=== PATIENT | male | born 1950 | race Caucasian/White ===

== ENCOUNTER 2017-11-04 12:53 | Emergency (ER) | payer OTHER ==
--- OUTSIDE RECORDS SUMMARY | 2017-11-04 12:55 | XMS REPORT | Summary of Care ---
:1950 Author Organization [facility] Out[facility] [place] Address [address] [address]- Encounter HQ Encntr_alias(FIN) [id number] Date(s): 03/11/17 - 03/11/17 [facility] Outpatient Imaging [address], [facility] [address] [place] [address]- [phone] Discharge Disposition: Home or Self Care Attending Physician: Jimbo Velasquez MD Vital Signs No data available for this section Problem List No data available for this section Allergies, Adverse Reactions, Alerts No data available for this section Medications No data available for this section Results No data available for this section Immunizations No data available for this section Procedures No data available for this section Social History No data available for this section Assessment and Plan No data available for this section
--- OUTSIDE RECORDS SUMMARY | 2017-11-04 12:55 | XMS REPORT | Continuity of Care Document ---
:1950 Author Organization Interface Problems Problem Status Onset Classification Date Comments Source Date Reported POLYPS OF SINUS Active [address] J32.4 - CHRONIC Active [facility] PANSINUSITIS [address] [place] [address] G50.1 - ATY Back pain Active Problem 10/03/2017 [facility] [place] Chronic Active Problem 10/03/2017 [facility] sinusitis [place],[facility] Medications Medication Details Route Status Patient Ordering Order Source Instructions Provider Date neostigmine
Route: IV, Inactive 04/04[facility] (ANES) Drug form: INJ, 2016 Medical ONCE, Stop date: [place] 04/04/17 13:01:00 LEGAL SPECIALIST glycopyrrolate
Route: IV, Inactive [facility] (ANES) Drug form: INJ, 2016 Medical ONCE, Stop date: [place] 04/04/17 13:01:00 LEGAL SPECIALIST ondansetron
Route: IV, Inactive [address] [place] [address] (ANES) Drug form: INJ, 2016 Medical ONCE, Stop date: [place] 04/04/17 13:01:00 LEGAL SPECIALIST metoprolol (ANES)
Route: IV, Inactive [address] [place] [address] Drug form: INJ, 2016 Medical ONCE, Stop date: [place] 04/04/17 13:01:00 LEGAL SPECIALIST esmolol (ANES)
Route: IV, Inactive [address] [place] [address] Drug form: INJ, 2016 Medical ONCE, Stop date: [place] 04/04/17 12:49:00 LEGAL SPECIALIST ketAMINE (ANES)
Route: IV, Inactive [facility] Drug form: INJ, 2016 Medical ONCE, Stop date: [place] 04/04/17 11:34:00 LEGAL SPECIALIST Ondansetron
4 mg, 2 mL, Inactive [address] [place] [address] Route: IVP, Drug [facility] Medical form: INJ, ONCE, [place] Dosing Weight 90.909, kg, PRN Nausea & Vomiting, Start date: 04/04/17 11:34:00 LEGAL SPECIALIST
Notes: (Same as: Zofran) MEDICATION WASTE Product Size: 4 mg Product Wasted: ___ mg Promethazine
6.25 mg, Inactive 04/04[facility] 0.25 mL, Route: 2016 Medical IVPB, Drug form: Center INJ, ONCE, Dosing Weight 90.909, kg, PRN Nausea & Vomiting, Start date: 04/04/17 11:34:00 LEGAL SPECIALIST
Notes: Do not give IV push. (Same as: Phenergan) Naloxone
0.4 mg, 1 Inactive 04/04[facility] mL, Route: IVP, 2016 Medical Drug form: INJ, Center Q2MIN, Dosing Weight 90.909, kg, PRN Narcotic Reversal, Start date: 04/04/17 11:34:00 LEGAL SPECIALIST, Duration: 8 doses or times, Stop date: 04/05/17 0:00:00 LEGAL SPECIALIST
Notes: Same as Narcan Flumazenil
0.2 mg, 2 Inactive 04/04[facility] mL, Route: IVP, 2016 Medical Drug form: INJ, Center PRN, Dosing Weight 90.909, kg, PRN Benzodiazepine Reversal, Initial dose, Start date: 04/04/17 11:34:00 LEGAL SPECIALIST, Duration: 30 day, Stop date: 05/04/17 11:33:00 LEGAL SPECIALIST
Notes: (Same as: Romazicon) Hydromorphone
0.5 mg, Inactive 04/04[facility] 0.25 mL, Route: 2016 Medical IVP, Drug form: Center INJ, Q5Min, Dosing Weight 90.909, kg, PRN Pain Score 7-10, Start date: 04/04/17 11:34:00 LEGAL SPECIALIST, Duration: 4 doses or times, Stop date: 04/05/17 0:00:00 LEGAL SPECIALIST
Notes: Same as: Dilaudid Oxycodone
5 mg, 1 Inactive 04/04[facility] tab, Route: PO, 2016 Medical Drug form: TAB, Center Q4H, Dosing Weight 90.909, kg, PRN Pain Score 4-6, Start date: 04/04/17 11:34:00 LEGAL SPECIALIST, Duration: 30 day, Stop date: 05/04/17 11:33:00 LEGAL SPECIALIST
Notes: (Same as: Roxicodone) Labetalol
10 mg, 2 Inactive [facility] mL, Route: IVP, 2016 Medical Drug form: INJ, Center Q5Min, Dosing Weight 90.909, kg, PRN Elevated BP, Start date: 04/04/17 11:34:00 LEGAL SPECIALIST, Duration: 5 doses or times, Stop date: 04/05/17 0:00:00 LEGAL SPECIALIST Hydralazine
10 mg, 0.5 Inactive 04/04[facility] mL, Route: IVP, 2016 Medical Drug form: INJ, Center Q20Min, Dosing Weight 90.909, kg, PRN Elevated BP, Start date: 04/04/17 11:34:00 LEGAL SPECIALIST, Duration: 2 doses or times, Stop date: 04/05/17 0:00:00 LEGAL SPECIALIST
Notes : (Same as: Apresoline) Push over 5 minutes phenylephrine
Route: IV, Inactive 04/04[facility] Sarah (ANES) Drug form: INJ, 2016 Medical ONCE, Stop date: [place] 04/04/17 11:19:00 LEGAL SPECIALIST dexamethasone
Route: IV, Inactive [facility] Sarah (ANES) Drug form: INJ, 2016 Medical ONCE, Stop date: [place] 04/04/17 11:14:00 LEGAL SPECIALIST fentaNYL (ANES)
Route: IV, Inactive [facility] Sarah Drug form: INJ, 2016 Medical ONCE, Stop date: [place] 04/04/17 11:14:00 LEGAL SPECIALIST rocuronium (ANES)
Route: IV, Inactive [facility] Sarah Drug form: INJ, 2016 Medical ONCE, Stop date: [place] 04/04/17 11:14:00 LEGAL SPECIALIST propofol (ANES)
Route: IV, Inactive [address] [place] [address] Sarah Drug form: INJ, 2016 Medical ONCE, Stop date: [place] 04/04/17 11:14:00 LEGAL SPECIALIST lidocaine (ANES)
Route: IV, Inactive [facility] Sarah Drug form: INJ, 2017 Medical ONCE, Stop date: [place] 04/04/17 11:14:00 LEGAL SPECIALIST midazolam (ANES)
Route: IV, Inactive [facility] Drug form: SOLN, 2016 Medical ONCE, Stop date: [place] 04/04/17 11:09:00 LEGAL SPECIALIST ceFAZolin (ANES)
Route: IV, Inactive [facility] Sarah Drug form: INJ, 2016 Medical ONCE, Stop date: [place] 04/04/17 11:09:00 LEGAL SPECIALIST phenylephrine
Route: IV, Inactive [facility] (ANES) 100 Drug form: INJ, 2017 Medical microgram Start date: [place] 04/04/17 10:54:00 LEGAL SPECIALIST, Stop date: 04/04/17 11:54:00 LEGAL SPECIALIST tramadol
1-2 tab, Active [place] hydrochloride 50 PO, Q6H, PRN 2017 Medical MG Oral Tablet Pain, X 20 day, Center # 60 tab, 0 Refill(s) dexmedetomidine
Route: IV, Inactive [facility] (ANES) 200 Drug form: INJ, 2017 Medical microgram Start date: [place] 04/04/17 10:09:00 LEGAL SPECIALIST, Stop date: 04/04/17 11:09:00 LEGAL SPECIALIST Lactated Ringers
Route: IV, Inactive [facility] Injection IV Total Volume: 2017 Medical (ANES) 1000 mL 1,000, Start Center date: 04/04/17 9:50:00 LEGAL SPECIALIST, Stop date: 04/04/17 10:50:00 LEGAL SPECIALIST Ondansetron 8 MG
8 mg=1 tab, Active [facility] Disintegrating PO, TID, PRN 2017 Medical Tablet Nausea or Center Vomiting, Dissolve under tongue, # 30 tab, 0 Refill(s) Amoxicillin 875
875 mg=1 Active 04/04[facility] Sarah MG / Clavulanate tab, PO, BID, 2017 Medical 125 MG Oral with food or Center Tablet [Augmentin milk, X 7 day, # 875-mg] 14 tab, 0 Refill(s) Acetaminophen 325
1 tab, PO, Active [facility] MG / Hydrocodone Q6H, PRN for 2017 Medical Bitartrate 10 MG pain, # 24 tab, Center Oral Tablet 0 Refill(s) [[place] ] Allergies, Adverse Reactions, Alerts Substance Category Reaction Severity Reaction Status Date Comments Source type Reported NKDA Assertion Drug Active [facility] allergy [place] Immunizations Immunization Date Given Site Status Last Updated Comments Source Results Order Name Results Value Reference Date Interpretation Comments Source Range HEMATOLOGY MCV 79.1 fL 80.0 - 04/04 [place] 94.0 [facility] HEMATOLOGY Hct 41.4 % 42.0 - 04/04 [place] 54.0 [facility] HEMATOLOGY Platelet 273 K/CMM 133 - 450 04/04 [facility] HEMATOLOGY RBC 5.23 M/CMM 4.70 - 04/04 [place] 6.10 [facility] HEMATOLOGY Hgb 14.1 g/dL 14.0 - 04/04 [place] 18.0 [facility] HEMATOLOGY WBC 9.7 K/CMM 3.7 - 10.4 04/04 [facility] HEMATOLOGY MCHC 34.2 g/dL 32.0 - 04/04 [place] 36.0 [facility] HEMATOLOGY RDW 14.2 % 11.5 - 04/04 [place] 14. [facility] HEMATOLOGY MCH 27.0 pg 27.0 - 04/04 [place] 31.0 [facility] HEMATOLOGY MPV 8.4 fL 7.4 - 10.4 04/04 [facility] HEMATOLOGY Segs-Bands # 5.7 K/CMM 1.5 - 8.1 04/04 [facility] HEMATOLOGY Basophils 0.8 % 0.0 - 1.0 04/04 [facility] HEMATOLOGY Eosinophils 0.3 K/CMM 0.0 - 0.5 04/04 [place] # [facility] HEMATOLOGY Basophils # 0.1 K/CMM 0.0 - 0.2 04/04 [facility] HEMATOLOGY Eosinophils 3.3 % 0.0 - 4.0 04/04 [facility] HEMATOLOGY Monocytes 13.2 % 2.0 - 12.0 04/04 [facility] HEMATOLOGY Lymphocytes 23.7 % 20.0 - 04/04 [place] 40.0 [facility] HEMATOLOGY Segs 59.0 % 45.0 - 04/04 [place] 75.0 [facility] HEMATOLOGY Monocytes # 1.3 K/CMM 0.0 - 0.8 04/04 [facility] HEMATOLOGY Lymphocytes 2.3 K/CMM 1.0 - 5.5 04/04 [facility] Facial Facial bones 03/11 - [facility] bones w/wo w/ - [place] contrast contrast MRI EXAM: Facial bones w/wo contrast MRI MRI Read by: Ernesto López MD Dictated Date/time: 03/11/17 11:46 INDICATION: G50.1 Atypical facial pain - G50.1 Atypical facial pain Electronically Signed by: Ernesto López MD 12:00 FINAL REPORT COMPARISON: None. TECHNIQUE: Multiplanar, multisequence magnetic resonance imaging of the facial bones was performed before and after the administration of intravenous gadolinium contrast. FINDINGS: There is complete opacification of the right maxillary and left frontal sinuses with intermediate to hyperintense T1/T2 weighted signal intensity components. Mild to moderate mucosal thickenin g of the left maxillary sinus is seen. Moderate-severe mucosal thickening of the right anterior ethmoid air cells is noted. Mild mucosal thickening of the right frontal sinus is also seen. There is also mild mucosal thickening of the bilateral sphenoid sinuses. There is diffuse mucosal enhancement throughout the left frontal, bilateral maxillary, and bilateral anterior ethmoid sinuses. Scattered, enhancing polyps in the nasal cavity are seen with largest measuring 1.9 x 0.8 cm on the right and 1.3 x 0.9 cm on the left. The optic globes and retrobulbar soft tissues are unremarkable. The Meckel' s cave and cavernous sinuses are unremarkable. No rim-enhancing fluid collections are seen. No bone marrow edema is present. Limited views of the brain parenchyma show moderate-severe chronic microvascular ischemic changes. Impression: 1. Diffuse chronic sinus disease, as described above. 2. Scattered polyps in the nasal cavity. SL: [id number] Vital Signs Vital Sign Value Date Comments Source Systolic (mm Hg) 122 04/04/2017 [facility] Diastolic (mm Hg) 75 04/04/2017 [facility] Systolic (mm Hg) 107 04/04/2017 [facility] Diastolic (mm Hg) 59 04/04/2017 [facility] Respitory Rate 29 04/04/2017 [facility] Systolic (mm Hg) 107 04/04/2017 [facility] Diastolic (mm Hg) 59 04/04/2017 [facility] Respitory Rate 29 04/04/2017 [facility] Respitory Rate 25 04/04/2017 [facility] Heart Rate 86 04/04/2017 [facility] Weight 90.909 03/31/2017 [facility] Height 177.8 cm 03/31/2017 [facility] BMI Calculated 28.76 03/31/2017 [facility] Encounters Location Location Encounter Encounter Reason Attending ADM DC Status Source Details Type Number For Provider Date Date Visit [facility] Outpt Diag [id number] Jimbo 03/11 03/12 [facility] [place] [facility] [place] [id number] Jimbo 04/04 04/05 [place] [facility] Outpt Diag [id number] Jimbo 09/30 10/01 [facility] [place] [facility] [place] Procedures Procedure Code Date Perfomer Comments Source Septorhinoplasty [id number] [facility] [place] Septorhinoplasty [id number] [facility]
--- OUTSIDE RECORDS SUMMARY | 2017-11-04 12:56 | XMS REPORT | Summary of Care ---
:1950 Author Organization [facility] Address [address] [place], [place] [address]- Encounter HQ William(FIN) [id number] Date(s): 04/04/17 - 04/04/[address] [address]- [place] Discharge Disposition: Home or Self Care Attending Physician: Jimbo Velasquez MD Referring Physician: Jimbo Velasquez MD Vital Signs Most recent to oldest 1 2 3 [Reference Range]: Height 177.8 cm (03/31/17 9:51 AM) Blood Pressure [90-140/60-90 122/75 mmHg 107/59 mmHg 107/59 mmHg mmHg] (04/04/17 2:45 PM) (04/04/17 2:30 PM) (04/04/17 2:15 PM) Respiratory Rate [14-20 29 BRMIN 29 BRMIN 25 BRMIN BRMIN] *HI* *HI* *HI* (04/04/17 2:30 PM) (04/04/17 2:15 PM) (04/04/17 2:00 PM) Peripheral Pulse Rate 86 bpm [60-100 bpm] (04/04/17 9:00 AM) Weight 90.909 kg (03/31/17 9:51 AM) Body Mass Index 28.76 m2 (03/31/17 9:51 AM) Problem List Condition Effective Dates Status Health Status Informant Back pain(Confirmed) Active Chronic sinusitis(Confirmed) Active Allergies, Adverse Reactions, Alerts Substance Reaction Severity Status NKDA Active Medications ANES flumazenil 0.2 mg, 2 mL, Route: IVP, Drug form: INJ, PRN, Dosing Weight 90.909, kg, PRN Benzodiazepine Reversal, Initial dose, Start date: 04/04/17 11:34:00 OIL RECOVERY OPERATOR, Duration: 30 day, Stop date: 05/04/17 11:33:00 OIL RECOVERY OPERATOR Notes: (Same as: Romazicon) Start Date: 04/04/17 Stop Date: 04/04/17 Status: DiscontinuedANES hydrALAZINE 10 mg, 0.5 mL, Route: IVP, Drug form: INJ, Q20Min, Dosing Weight 90.909, kg, PRN Elevated BP, Start date: 04/04/17 11:34:00 OIL RECOVERY OPERATOR, Duration: 2 doses or times, Stop date: 04/05/17 0:00:00 OIL RECOVERY OPERATOR Notes: (Same as: Apresoline)Push over 5 minutes Start Date: 04/04/17 Stop Date: 04/04/17 Status: DiscontinuedANES HYDROmorphone 0.5 mg, 0.25 mL, Route: IVP, Drug form: INJ, Q5Min, Dosing Weight 90.909, kg, PRN Pain Score 7-10, Start date: 04/04/17 11:34:00 OIL RECOVERY OPERATOR, Duration: 4 doses or times, Stop date: 04/05/17 0:00:00 OIL RECOVERY OPERATOR Notes: Same as: Dilaudid Start Date: 04/04/17 Stop Date: 04/04/17 Status: DiscontinuedANES labetalol 10 mg, 2 mL, Route: IVP, Drug form: INJ, Q5Min, Dosing Weight 90.909, kg, PRN Elevated BP, Start date: 04/04/17 11:34:00 OIL RECOVERY OPERATOR, Duration: 5 doses or times, Stop date: 04/05/17 0:00:00 OIL RECOVERY OPERATOR Start Date: 04/04/17 Stop Date: 04/04/17 Status: DiscontinuedANES naloxone 0.4 mg, 1 mL, Route: IVP, Drug form: INJ, Q2MIN, Dosing Weight 90.909, kg, PRN Narcotic Reversal, Start date: 04/04/17 11:34:00 OIL RECOVERY OPERATOR, Duration: 8 doses or times , Stop date: 04/05/17 0:00:00 OIL RECOVERY OPERATOR Notes: Same as Narcan Start Date: 04/04/17 Stop Date: 04/04/17 Status: DiscontinuedANES ondansetron 4 mg, 2 mL, Route: IVP, Drug form: INJ, ONCE, Dosing Weight 90.909, kg, PRN Nausea & Vomiting, Start date: 04/04/17 11:34:00 OIL RECOVERY OPERATOR Notes: (Same as: Zofran) MEDICATION WASTE Product Size: 4 mgProduct Wasted: ___ mg Start Date: 04/04/17 Stop Date: 04/04/17 Status: DiscontinuedANES oxyCODONE 5 mg, 1 tab, Route: PO, Drug form: TAB, Q4H, Dosing Weight 90.909, kg, PRN Pain Score 4-6, Start date: 04/04/17 11:34:00 OIL RECOVERY OPERATOR, Duration: 30 day, Stop date: 05/04 11:33:00 OIL RECOVERY OPERATOR Notes: (Same as: Roxicodone) Start Date: 04/04/17 Stop Date: 04/04/17 Status: DiscontinuedANES promethazine 6.25 mg, 0.25 mL, Route: IVPB, Drug form: INJ, ONCE, Dosing Weight 90.909, kg, PRN Nausea & Vomiting, Start date: 04/04/17 11:34:00 OIL RECOVERY OPERATOR Notes: Do not give IV push. (Same as: Phenergan) Start Date: 04/04/17 Stop Date: 04/04/17 Status: DiscontinuedAugmentin 875 mg oral tablet 875 mg=1 tab, PO, BID, with food or milk, X 7 day, # 14 tab, 0 Refill(s) Start Date: 04/04/17 Stop Date: 04/11/17 Status: OrderedceFAZolin (ANES) Route: IV, Drug form: INJ, ONCE, Stop date: 04/04/17 11:09:00 OIL RECOVERY OPERATOR Start Date: 04/04/17 Stop Date: 04/04/17 Status: Completeddexamethasone (ANES) Route: IV, Drug form: INJ, ONCE, Stop date: 04/04/17 11:14:00 OIL RECOVERY OPERATOR Start Date: 04/04/17 Stop Date: 04/04/17 Status: Completeddexmedetomidine (ANES) 200 microgram Route: IV, Drug form: INJ, Start date: 04/04/17 10:09:00 OIL RECOVERY OPERATOR, Stop date: 11:09:00 OIL RECOVERY OPERATOR Start Date: 04/04/17 Stop Date: 04/04/17 Status: Completedesmolol (ANES) Route: IV, Drug form: INJ, ONCE, Stop date: 04/04/17 12:49:00 OIL RECOVERY OPERATOR Start Date: 04/04/17 Stop Date: 04/04/17 Status: CompletedfentaNYL (ANES) Route: IV, Drug form: INJ, ONCE, Stop date: 04/04/17 11:14:00 OIL RECOVERY OPERATOR Start Date: 04/04/17 Stop Date: 04/04/17 Status: Completedglycopyrrolate (ANES) Route: IV, Drug form: INJ, ONCE, Stop date: 04/04/17 13:01:00 OIL RECOVERY OPERATOR Start Date: 04/04/17 Stop Date: 04/04/17 Status: CompletedketAMINE (ANES) Route: IV, Drug form: INJ, ONCE, Stop date: 04/04/17 11:34:00 OIL RECOVERY OPERATOR Start Date: 04/04/17 Stop Date: 04/04/17 Status: CompletedLactated Ringers Injection IV (ANES) 1000 mL Route: IV, Total Volume: 1,000, Start date: 04/04/17 9:50:00 OIL RECOVERY OPERATOR, Stop date: 10:50:00 OIL RECOVERY OPERATOR Start Date: 04/04/17 Stop Date: 04/04/17 Status: Completedlidocaine (ANES) Route: IV, Drug form: INJ, ONCE, Stop date: 04/04/17 11:14:00 OIL RECOVERY OPERATOR Start Date: 04/04/17 Stop Date: 04/04/17 Status: Completedmetoprolol (ANES) Route: IV, Drug form: INJ, ONCE, Stop date: 04/04/17 13:01:00 OIL RECOVERY OPERATOR Start Date: 04/04/17 Stop Date: 04/04/17 Status: Completedmidazolam (ANES) Route: IV, Drug form: SOLN, ONCE, Stop date: 04/04/17 11:09:00 OIL RECOVERY OPERATOR Start Date: 04/04/17 Stop Date: 04/04/17 Status: Completedneostigmine (ANES) Route: IV, Drug form: INJ, ONCE, Stop date: 04/04/17 13:01:00 OIL RECOVERY OPERATOR Start Date: 04/04/17 Stop Date: 04/04/17 Status: CompletedNorco 10/325 oral tablet 1 tab, PO, Q6H, PRN for pain, # 24 tab, 0 Refill(s) Start Date: 03/31/17 Stop Date: 04/06/17 Status: Orderedondansetron (ANES) Route: IV, Drug form: INJ, ONCE, Stop date: 04/04/17 13:01:00 OIL RECOVERY OPERATOR Start Date: 04/04/17 Stop Date: 04/04/17 Status: Completedondansetron 8 mg oral tablet, disintegrating 8 mg=1 tab, PO, TID, PRN Nausea or Vomiting, Dissolve under tongue, # 30 tab, 0 Refill(s) Start Date: 04/04/17 Stop Date: 04/11/17 Status: Orderedphenylephrine (ANES) Route: IV, Drug form: INJ, ONCE, Stop date: 04/04/17 11:19:00 OIL RECOVERY OPERATOR Start Date: 04/04/17 Stop Date: 04/04/17 Status: Completedphenylephrine (ANES) 100 microgram Route: IV, Drug form: INJ, Start date: 04/04/17 10:54:00 OIL RECOVERY OPERATOR, Stop date: 11:54:00 OIL RECOVERY OPERATOR Start Date: 04/04/17 Stop Date: 04/04/17 Status: Completedpropofol (ANES) Route: IV, Drug form: INJ, ONCE, Stop date: 04/04/17 11:14:00 OIL RECOVERY OPERATOR Start Date: 04/04/17 Stop Date: 04/04/17 Status: Completedrocuronium (ANES) Route: IV, Drug form: INJ, ONCE, Stop date: 04/04/17 11:14:00 OIL RECOVERY OPERATOR Start Date: 04/04/17 Stop Date: 04/04/17 Status: Completedtramadol 50 mg oral tablet 1-2 tab, PO, Q6H, PRN Pain, X 20 day, # 60 tab, 0 Refill(s) Start Date: 04/04/17 Stop Date: 04/24/17 Status: Ordered Results HEMATOLOGY Most recent to oldest [Reference Range]: 1 WBC [3.7-10.4 K/CMM] 9.7 K/CMM (04/04/17 8:51 AM) RBC [4.70-6.10 M/CMM] 5.23 M/CMM (04/04/17 8:51 AM) Hgb [14.0-18.0 g/dL] 14.1 g/dL (04/04/17 8:51 AM) Hct [42.0-54.0 %] 41.4 % *LOW* (04/04/17 8:51 AM) MCV [80.0-94.0 fL] 79.1 fL *LOW* (04/04/17 8:51 AM) MCH [27.0-31.0 pg] 27.0 pg (04/04/17 8:51 AM) MCHC [32.0-36.0 g/dL] 34.2 g/dL (04/04/17 8:51 AM) RDW [11.5-14.5 %] 14.2 % (04/04/17 8:51 AM) Platelet [133-450 K/CMM] 273 K/CMM (04/04/17 8:51 AM) MPV [7.4-10.4 fL] 8.4 fL (04/04/17 8:51 AM) Segs [45.0-75.0 %] 59.0 % (04/04/17 8:51 AM) Lymphocytes [20.0-40.0 %] 23.7 % (04/04/17 8:51 AM) Monocytes [2.0-12.0 %] 13.2 % *HI* (04/04/17 8:51 AM) Eosinophils [0.0-4.0 %] 3.3 % (04/04/17 8:51 AM) Basophils [0.0-1.0 %] 0.8 % (04/04/17 8:51 AM) Segs-Bands # [1.5-8.1 K/CMM] 5.7 K/CMM (04/04/17 8:51 AM) Lymphocytes # [1.0-5.5 K/CMM] 2.3 K/CMM (04/04/17 8:51 AM) Monocytes # [0.0-0.8 K/CMM] 1.3 K/CMM *HI* (04/04/17 8:51 AM) Eosinophils # [0.0-0.5 K/CMM] 0.3 K/CMM (04/04/17 8:51 AM) Basophils # [0.0-0.2 K/CMM] 0.1 K/CMM (04/04/17 8:51 AM) Immunizations No data available for this section Procedures Procedure Date Related Diagnosis Body Site Septorhinoplasty Social History Social History Type Response Smoking Status Former smoker; Exposure to Tobacco Smoke None; Cigarette Smoking Last 365 Days No; Reg Smoking Cessation Counseling No1 1quit in 2009 Assessment and Plan No data available for this section
--- OUTSIDE RECORDS SUMMARY | 2017-11-04 12:56 | XMS REPORT | Summary of Care ---
:1950 Author Organization [facility] [place] Address [address], [place] [address]- Encounter HQ Encntr_alias(FIN) [id number] Date(s): 09/30/17 - 09/30/17 [facility] [place] [address] [place] [address]- [phone] Discharge Disposition: Home or Self Care Attending Physician: Jimbo Velasquez MD Vital Signs No data available for this section Problem List Condition Effective Dates Status Health Status Informant Back pain(Confirmed) Active Chronic sinusitis(Confirmed) Active Allergies, Adverse Reactions, Alerts Substance Reaction Severity Status NKDA Active Medications No data available for this section Results No data available for this section Immunizations No data available for this section Procedures Procedure Date Related Diagnosis Body Site Status Septorhinoplasty Completed Social History Social History Type Response Smoking Status Former smoker; Exposure to Tobacco Smoke None; Cigarette Smoking Last 365 Days No; Reg Smoking Cessation Counseling No1 entered on: 04/04/17 1quit in 2009 Assessment and Plan No data available for this section
--- OUTSIDE RECORDS SUMMARY | 2017-11-04 12:56 | XMS REPORT | Summary of Care ---
:1950 Author Name Brittaney Maher M.A. Address Unavailable Unavailable , Care Team Providers Name Role Phone SANDY KAUFFMAN M.D. Unavailable Unavailable Brittaney Maher M.A. 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 Quantity: 1 Refills: 10 SANDY KAUFFMAN M.D. Start : 24-Apr-2017 Active 15.8 ML Bottle Tobramycin Powder USE DIRECTED. Quantity: 60 Refills: 0 SANDY KAUFFMAN M.D. Start : 04-Jul-2017 Active Clindamycin HCl - 150 MG Oral Capsule Take 3 tablets TID for 10 days. Quantity: 90 Refills: 0 SANDY KAUFFMAN M.D. Start : 12-Aug-2017 Active Allergies and Adverse Reactions Name Dates Details No Known Drug Allergies (Allergy) Status: Active Procedures Procedure Dates Details CT Sinus wo contrast 45386 Date: 12-Aug-2017 History of nasal septoplasty Completed Immunization Name Dates Details Immunizations not documented Family History Name Dates Details No pertinent family history Status: Active Social History Name Dates Details - Status: Name Dates Details Former smoker Vital Signs Date Test Result Details [id number] BP Systolic 160 mm[Hg] Status: Comments: Location: E; Position: Sitting BP Diastolic 78 mm[Hg] Status: Comments: [place] [facility] [place]: Sitting Height 70 in Status: Weight 205 lb Status: Body Mass Index Calculated 29.41 kg/m2 Status: Body Surface Area Calculated 2.11 m2 Status: Temperature 97.6 f Status: Comments: Method: Oral Heart Rate 88 /min Status: Results Date Description Value Details Results not documented Plan of Care Name Dates Details Planned Observations CT Sinus wo contrast [id number] On: 30-Sep-2017 Intent Planned Goals not documented Planned Encounters Appointment; SANDY KAUFFMAN M.D. On: 30-Sep-2017 13:00 Instructions Name Dates Details Instructions not documented Encounters Appointment; SANDY KAUFFMAN M.D. On: 07-Mar-2017 13:30 Encounter Diagnosis: Problem not documented Appointment; SANDY KAUFFMAN M.D. On: 08-Apr-2017 10:00 Encounter Diagnosis: Problem not documented Appointment; SANDY KAUFFMAN M.D. On: 24-Apr-2017 10:00 Encounter Diagnosis: Problem not documented Appointment; SANDY KAUFFMAN M.D. On: 09-Jun-2017 10:00 Encounter Diagnosis: Problem not documented Appointment; SANDY KAUFFMAN M.D. On: 04-Jul-2017 11:00 Encounter Diagnosis: Problem not documented Appointment; SANDY KAUFFMAN M.D. On: 12-Aug-2017 10:15 Encounter Diagnosis: Problem not documented
--- NOTE | 2017-11-04 14:20 | RAD REPORT ---
EXAM DESCRIPTION: VAS - Extremity Venous Uni Ltd - 11/04/2017 2:15 pm CLINICAL HISTORY: Left arm pain and swelling COMPARISON: None. TECHNIQUE: Real-time sonographic evaluation of the left upper extremity deep venous systems was perf ormed. Grayscale evaluation performed with Doppler assessment of the vasculature as well. FINDINGS: Normal compressibility, flow augmentation, phasic flow and spontaneous flow are identified in the left upper extremity deep venous system. No intraluminal filling defects seen. Internal jugul ar and subclavian veins are normal as well. No suspicious waveform pattern. IMPRESSION: No DVT in the left upper extremity.
--- NOTE | 2017-11-04 15:33 | ER ---
Nurse's Notes [facility] Name: Kevin Sorto Age: 67 yrs Sex: Male : 1950 Arrival Date: 11/04/2017 Time: 12:55 Bed 18 Private MD: Diagnosis: Monoarthritis, not elsewhere classified, left wrist Presentation: 11/04 12:57 Presenting complaint: Patient states: left wrist swelling started yesterday and today sv the pain has gone up to the left elbow and shoulder. Transition of care: patient was not received from another setting of care. Onset of symptoms was November 03, 2017. Care prior to arrival: None. 12:57 Method Of Arrival: Ambulatory sv 12:57 Acuity: LILLIAN 3 sv 13:22 Risk Assessment: Do you want to hurt yourself or someone else? Patient reports no ph desire to harm self or others. Initial Sepsis Screen: Does the patient meet any 2 criteria? No. Patient's initial sepsis screen is negative. Does the patient have a suspected source of infection? No. Patient's initial sepsis screen is negative. Historical: - Allergies: 13:00 No Known Allergies; sv - Home Meds: 13:00 OxyContin Oral [Active]; budosenide [Active]; sv - PSHx: 13:00 sinus; sv - Immunization history:: Adult Immunizations up to date. - Social history:: Smoking status: Patient/guardian denies using tobacco. - Ebola Screening: : No symptoms or risks identified at this time. Screenin:20 Abuse screen: Denies threats or abuse. Denies injuries from another. Nutritional ph screening: No deficits noted. Tuberculosis screening: No symptoms or risk factors identified. Fall Risk None identified. Assessment: 13:37 General: Appears in no apparent distress. comfortable, well groomed, Behavior is calm, ph cooperative, appropriate for age, Denies fever, feeling ill. Pain: Complains of pain in left wrist Pain radiates to left bicep, dorsal aspect of left forearm and left hand. Neuro: Level of Consciousness is awake, alert, obeys commands, Oriented to person, place, time, situation. Cardiovascular: Capillary refill < 3 seconds Patient's skin is warm and dry. Respiratory: Airway is patent Respiratory effort is even, unlabored, Respiratory pattern is regular, symmetrical. Derm: Skin is intact, is healthy with good turgor, Skin is pink, warm \T\ dry. Musculoskeletal: Circulation, motion, and sensation intact. Range of motion: intact in all extremities. 15:01 Reassessment: Patient appears in no apparent distress at this time. Patient and/or ph family updated on plan of care and expected duration. Pain level reassessed. Patient is alert, oriented x 3, equal unlabored respirations, skin warm/dry/pink. Pt resting quietly, VSS, SO at bedside. Vital Signs: 13:00 BP 151 / 81; Pulse 103; Resp 18; Temp 99; Pulse Ox 96% ; Weight 91.63 kg; Height 5 ft. sv 10 in. (177.80 cm); Pain 9/10; 15:02 BP 134 / 78; Pulse 91; Resp 18; Pulse Ox 99% on R/A; ph 15:47 BP 138 / 76; Pulse 92; Resp 18; Temp 97.8; Pulse Ox 99% on R/A; ph 13:00 Body Mass Index 28.98 (91.63 kg, 177.80 cm) sv ED Course: 12:55 Patient arrived in ED. as 12:59 Triage completed. sv 13:01 Arm band placed on right wrist. Patient placed in waiting room, Patient notified of sv wait time. 13:12 Shamir Nelson MD is Attending Physician. gs 13:20 Zhanna Pearce, GOMEZ is Primary Nurse. ph 13:23 Patient has correct armband on for positive identification. Bed in low position. Call ph light in reach. Pulse ox on. NIBP on. Warm blanket given. 13:45 Initial lab(s) drawn, by tn, sent to lab. Inserted saline lock: 20 gauge in right ph wrist, using aseptic technique. Blood collected. 13:54 Extremity Venous Unilateral Ltd In Process Unspecified. EDMS 15:33 Yaneli Wild DO is Referral Physician. gs 15:47 No provider procedures requiring assistance completed. IV discontinued, intact, ph bleeding controlled, No redness/swelling at site. Pressure dressing applied. Administered Medications: No medications were administered Outcome: 15:32 Discharge ordered by . gs 15:48 Discharged to home ambulatory, with significant other. ph 15:48 Condition: good 15:48 Discharge instructions given to patient, Instructed on discharge instructions, follow up and referral plans. medication usage, Demonstrated understanding of instructions, follow-up care, medications, Prescriptions given X 2. 15:49 Patient left the ED. ph Signatures: Dispatcher [employer] EDHanane Allen RN RN sv Martinez, Amelia as Hall, Patricia, RN RN NelsonShamir MD MD
--- NOTE | 2017-11-04 15:33 | EDPHYS ---
Physician Documentation [facility] Name: Kevin Sorto Age: 67 yrs Sex: Male : 1950 Arrival Date: 11/04/2017 Time: 12:55 Bed 18 Private MD: ED Physician Shamir Nelson HPI: 11/04 15:20 This 67 yrs old Male presents to ER via Ambulatory with complaints of Wrist gs Pain, Arm Pain. 15:20 The patient or guardian reports swelling. The complaints affect the left wrist gs diffusely. Onset: The symptoms/episode began/occurred 1 week(s) ago. Modifying factors: The symptoms are alleviated by nothing, the symptoms are aggravated by nothing. Associated signs and symptoms: Pertinent negatives: cyanosis distally, decreased sensation distally, fever. Compartment Syndrome negative for numbness, tingling. The patient has experienced similar episodes in the past, a few times. 15:26 intermittent different joints for a few years.. gs Historical: - Allergies: 13:00 No Known Allergies; sv - Home Meds: 13:00 OxyContin Oral [Active]; budosenide [Active]; sv - PSHx: 13:00 sinus; sv - Immunization history:: Adult Immunizations up to date. - Social history:: Smoking status: Patient/guardian denies using tobacco. - Ebola Screening: : No symptoms or risks identified at this time. ROS: 15:26 All other systems are negative. gs Exam: 15:26 Cardiovascular: Regular rate and rhythm with a normal S1 and S2. No gallops, murmurs, gs or rubs. Normal PMI, no JVD. No pulse deficits. Respiratory: Lungs have equal breath sounds bilaterally, clear to auscultation and percussion. No rales, rhonchi or wheezes noted. No increased work of breathing, no retractions or nasal flaring. Abdomen/GI: Soft, non-tender, with normal bowel sounds. No distension or tympany. No guarding or rebound. No evidence of tenderness throughout. Back: No spinal tenderness. No costovertebral tenderness. Full range of motion. Skin: Warm, dry with normal turgor. Normal color with no rashes, no lesions, and no evidence of cellulitis. Neuro: Awake and alert, GCS 15, oriented to person, place, time, and situation. Cranial nerves II-XII grossly intact. Motor strength 5/5 in all extremities. Sensory grossly intact. Cerebellar exam normal. Normal gait. 15:26 Constitutional: The patient appears alert, awake. 15:26 Musculoskeletal/extremity: Circulation is intact in all extremities. Joints: the left wrist displays painful range of motion, swelling, tenderness, no effusion. Vital Signs: 13:00 BP 151 / 81; Pulse 103; Resp 18; Temp 99; Pulse Ox 96% ; Weight 91.63 kg; Height 5 ft. sv 10 in. (177.80 cm); Pain 9/10; 15:02 BP 134 / 78; Pulse 91; Resp 18; Pulse Ox 99% on R/A; ph 15:47 BP 138 / 76; Pulse 92; Resp 18; Temp 97.8; Pulse Ox 99% on R/A; ph 13:00 Body Mass Index 28.98 (91.63 kg, 177.80 cm) sv MDM: 13:20 Patient medically screened. gs 15:26 Differential diagnosis: tendonitis, arthritis, gout, doubt septic arthritis no sig gs effusion. Data reviewed: vital signs, nurses notes. Response to treatment: the patient's symptoms have mildly improved after treatment, and as a result, I will discharge patient. 15:33 Counseling: I had a detailed discussion with the patient and/or guardian regarding: the gs presence of at least one elevated blood pressure reading (>120/80) during this emergency department visit. Special discussion: I have referred the patient to see his PCP for further evaluation of high blood pressure. 11/04 13:21 Order name: Uric Acid; Complete Time: 14:12 gs 11/04 13:21 Order name: Extremity Venous Unilateral Ltd; Complete Time: 15:34 gs Administered Medications: No medications were administered Disposition: 11/04/17 15:32 Discharged to Home. Impression: Monoarthritis, not elsewhere classified, left wrist. - Condition is Stable. - Discharge Instructions: Arthritis, Nonspecific, Managing Your High Blood Pressure. - Prescriptions for Tylenol- Codeine #4 300-60 mg Oral Tablet - take 1 tablet by ORAL route every 6 hours As needed; 15 tablet. Prednisone 20 mg Oral Tablet - take 2 tablet by ORAL route once daily for 5 days; 10 tablet. - Medication Reconciliation Form, Thank You Letter, Antibiotic Education, Prescription Opioid Use form. - Follow up: Private Physician; When: 2 - 3 days; Reason: Re-evaluation by your physician. Follow up: Junito, DO Yaneli; When: 2 - 3 days; Reason: Re-evaluation by your physician. Signatures: Dispatcher [employer] Hanane Gross, RN RN Zhanna Martínez RN RN ph Shamir Nelson MD MD gs Corrections: (The following items were deleted from the chart) 15:33 15:32 11/04/2017 15:32 Discharged to Home. Impression: Monoarthritis, not elsewhere gs classified, left wrist. Condition is Stable. Forms are Medication Reconciliation Form, Thank You Letter, Antibiotic Education, Prescription Opioid Use. Follow up: Private Physician; When: 2 - 3 days; Reason: Re-evaluation by your physician. 15:49 15:33 11/04/2017 15:32 Discharged to Home. Impression: Monoarthritis, not elsewhere ph classified, left wrist. Condition is Stable. Discharge Instructions: Managing Your High Blood Pressure, Arthritis, Nonspecific. Prescriptions for Tylenol-Codeine #4 300-60 mg Oral Tablet - take 1 tablet by ORAL route every 6 hours As needed; 15 tablet, Prednisone 20 mg Oral Tablet - take 2 tablet by ORAL route once daily for 5 days; 10 tablet. and Forms are Medication Reconciliation Form, Thank You Letter, Antibiotic Education, Prescription Opioid Use. Follow up: Private Physician; When: 2 - 3 days; Reason: Re-evaluation by your physician. Follow up: Yaneli Wild; When: 2 - 3 days; Reason: Re-evaluation by your physician.
== END 2017-11-04 15:49 | disposition home or self-care (01) ==
LOC: ER 12:53
DX: M13.132 Monoarthritis, not elsewhere classified, left wrist (principal)
CPT/HCPCS: 36415; 84550; 93971; 99284

== ENCOUNTER 2018-12-28 07:37 | Day surgery (SDC) | payer OTHER ==
[2018-12-28] MEDS ORDERED: BALANCED SALT IRRIG PLAIN 500 ML BTL IRR ONE (07:40)
[2018-12-28] MEDS ORDERED: DUOVISC 1 KIT OPTH ONE (07:40)
[2018-12-28] MEDS ORDERED: NS 0.9% VIAL 10 ML ONE (07:40)
[2018-12-28] MEDS ORDERED: EPINEPHRINE/PF 1 MG/ML AMP ONE (07:40)
--- OUTSIDE RECORDS SUMMARY | 2018-12-28 07:42 | XMS REPORT | Continuity of Care Document ---
:1950 Author Organization [employer] Care Team Providers Name Role Phone [employer] Unavailable Unavailable Problems Problem Status Onset Classification Date Comments Source Date Reported POLYPS OF SINUS Active [address] Center J32.4 - CHRONIC Active [facility] PANSINUSITIS 7 English G50.1 - ATY Backache Active Problem 10/03/2017 [facility] (finding) [facility], [place] Chronic Active Problem 10/03/2017 [facility] sinusitis Medical (disorder) [place], DIAZ [place] Medications Medication Details Route Status Patient Ordering Order Source Instructions Provider Date neostigmine Route: IV, Drug Inactive 04/04[facility] (ANES) form: INJ, ONCE, 2016 Medical Stop date: [place] 04/04/17 13:01:00 [employer]CHOOL COORDIN[employer] glycopyrrolate Route: IV, Drug Inactive 04/04[facility] (ANES) form: INJ, ONCE, 2016 Medical Stop date: [place] 04/04/17 13:01:00 AFTER SCHOOL COORDINATOR ondansetron Route: IV, Drug Inactive 04/04[facility] (ANES) form: INJ, ONCE, 2016 Medical Stop date: [place] 04/04/17 13:01:00 AFTER SCHOOL COORDINATOR metoprolol (ANES) Route: IV, Drug Inactive 04/04[facility] form: INJ, ONCE, 2016 Medical Stop date: [place] 04/04/17 13:01:00 AFTER SCHOOL COORDINATOR esmolol (ANES) Route: IV, Drug Inactive 04/04[facility] form: INJ, ONCE, 2016 Medical Stop date: [place] 04/04/17 12:49:00 AFTER SCHOOL COORDINATOR ketAMINE (ANES) Route: IV, Drug Inactive 04/04[facility] form: INJ, ONCE, 2016 Medical Stop date: [place] 04/04/17 11:34:00 AFTER SCHOOL COORDINATOR Ondansetron 4 mg, 2 mL, Inactive 04/04[facility] Route: IVP, Drug [facility] Medical form: INJ, ONCE, [place] Dosing Weight 90.909, kg, PRN Nausea & Vomiting, Start date: 04/04/17 11:34:00 CSTNotes: (Same as: Zofran) MEDICATION WASTE Product Size: 4 mg Product Wasted: ___ mg Promethazine 6.25 mg, 0.25 Inactive [place] mL, Route: IVPB, 2016 Medical Drug form: INJ, Center ONCE, Dosing Weight 90.909, kg, PRN Nausea & Vomiting, Start date: 04/04/17 11:34:00 CSTNotes: Do not give IV push. (Same as: Phenergan) Naloxone 0.4 mg, 1 mL, Inactive [place] Route: IVP, Drug 2016 Medical form: INJ, Center Q2MIN, Dosing Weight 90.909, kg, PRN Narcotic Reversal, Start date: 04/04/17 11:34:00 AFTER SCHOOL COORDINATOR, Duration: 8 doses or times, Stop date: 04/05/17 0:00:00 CSTNotes: Same as Narcan Flumazenil 0.2 mg, 2 mL, Inactive [facility] Route: IVP, Drug 2016 Medical form: INJ, PRN, Center Dosing Weight 90.909, kg, PRN Benzodiazepine Reversal, Initial dose, Start date: 04/04/17 11:34:00 AFTER SCHOOL COORDINATOR, Duration: 30 day, Stop date: 05/04/17 11:33:00 CSTNotes: (Same as: Romazicon) Hydromorphone 0.5 mg, 0.25 mL, Inactive [place] Route: IVP, Drug 2016 Medical form: INJ, Center Q5Min, Dosing Weight 90.909, kg, PRN Pain Score 7-10, Start date: 04/04/17 11:34:00 AFTER SCHOOL COORDINATOR, Duration: 4 doses or times, Stop date: 04/05/17 0:00:00 CSTNotes: Same as: Dilaudid Oxycodone 5 mg, 1 tab, Inactive [facility] Route: PO, Drug 2016 Medical form: TAB, Q4H, Center Dosing Weight 90.909, kg, PRN Pain Score 4-6, Start date: 04/04/17 11:34:00 AFTER SCHOOL COORDINATOR, Duration: 30 day, Stop date: 05/04/17 11:33:00 CSTNotes: (Same as: Roxicodone) Labetalol 10 mg, 2 mL, Inactive [facility] Route: IVP, Drug 2016 Medical form: INJ, Center Q5Min, Dosing Weight 90.909, kg, PRN Elevated BP, Start date: 04/04/17 11:34:00 AFTER SCHOOL COORDINATOR, Duration: 5 doses or times, Stop date: 04/05/17 0:00:00 AFTER SCHOOL COORDINATOR Hydralazine 10 mg, 0.5 mL, Inactive [facility] Route: IVP, Drug 2016 Medical form: INJ, Center Q20Min, Dosing Weight 90.909, kg, PRN Elevated BP, Start date: 04/04/17 11:34:00 AFTER SCHOOL COORDINATOR, Duration: 2 doses or times, Stop date: 04/05/17 0:00:00 CSTNotes: (Same as: Apresoline) Push over 5 minutes phenylephrine Route: IV, Drug Inactive 04/04[facility] (ANES) form: INJ, ONCE, 2016 Medical Stop date: [place] 04/04/17 11:19:00 AFTER SCHOOL COORDINATOR dexamethasone Route: IV, Drug Inactive 04/04[facility] (ANES) form: INJ, ONCE, 2016 Medical Stop date: [place] 04/04/17 11:14:00 AFTER SCHOOL COORDINATOR fentaNYL (ANES) Route: IV, Drug Inactive 04/04[facility] form: INJ, ONCE, 2016 Medical Stop date: [place] 04/04/17 11:14:00 AFTER SCHOOL COORDINATOR rocuronium (ANES) Route: IV, Drug Inactive 04/04[facility] form: INJ, ONCE, 2016 Medical Stop date: [place] 04/04/17 11:14:00 AFTER SCHOOL COORDINATOR propofol (ANES) Route: IV, Drug Inactive 04/04[facility] form: INJ, ONCE, 2016 Medical Stop date: [place] 04/04/17 11:14:00 AFTER SCHOOL COORDINATOR lidocaine (ANES) Route: IV, Drug Inactive 04/04[facility] form: INJ, ONCE, 2016 Medical Stop date: [place] 04/04/17 11:14:00 AFTER SCHOOL COORDINATOR midazolam (ANES) Route: IV, Drug Inactive 04/04[facility] form: SOLN, 2016 Medical ONCE, Stop date: [place] 04/04/17 11:09:00 AFTER SCHOOL COORDINATOR ceFAZolin (ANES) Route: IV, Drug Inactive 04/04[facility] form: INJ, ONCE, 2017 Medical Stop date: [place] 04/04/17 11:09:00 AFTER SCHOOL COORDINATOR phenylephrine Route: IV, Drug Inactive [facility] (ANES) 100 form: INJ, Start 2016 Medical microgram date: 04/04/17 [place] 10:54:00 AFTER SCHOOL COORDINATOR, Stop date: 04/04/17 11:54:00 AFTER SCHOOL COORDINATOR tramadol 1-2 tab, PO, Active [place] hydrochloride 50 Q6H, PRN Pain, X 2017 Medical MG Oral Tablet 20 day, # 60 Center tab, 0 Refill(s) dexmedetomidine Route: IV, Drug Inactive [facility] (ANES) 200 form: INJ, Start 2016 Medical microgram date: 04/04/17 [place] 10:09:00 AFTER SCHOOL COORDINATOR, Stop date: 04/04/17 11:09:00 AFTER SCHOOL COORDINATOR Lactated Ringers Route: IV, Total Inactive [facility] Injection IV Volume: 1,000, 2017 Medical (ANES) 1000 mL Start date: [place] 04/04/17 9:50:00 AFTER SCHOOL COORDINATOR, Stop date: 04/04/17 10:50:00 AFTER SCHOOL COORDINATOR Ondansetron 8 MG 8 mg=1 tab, PO, Active [facility] Disintegrating TID, PRN Nausea 2017 Medical Tablet or Vomiting, Center Dissolve under tongue, # 30 tab, 0 Refill(s) Amoxicillin 875 875 mg=1 tab, Active [facility] MG / Clavulanate PO, BID, with 2017 Medical 125 MG Oral food or milk, X Center Tablet [Augmentin 7 day, # 14 tab, 875-mg] 0 Refill(s) Acetaminophen 325 1 tab, PO, Q6H, Active [facility] MG / Hydrocodone PRN for pain, # 2017 Medical Bitartrate 10 MG 24 tab, 0 Center Oral Tablet Refill(s) [Patriot 10/325] Allergies, Adverse Reactions, Alerts No Known Medication Allergies Immunizations No Data Provided for This Section Results Order Name Results Value Reference Date Interpretation Comments Source Range HEMATOLOGY MCV 79.1 80.0 - 94.[address] HEMATOLOGY Hct 41.4 42.0 - 54.[address] HEMATOLOGY Platelet 273 133 - [address] HEMATOLOGY RBC 5.23 4.70 - 6.[address] [place] [address] HEMATOLOGY Hgb 14.1 14.0 - 18.[address] [place] [address] HEMATOLOGY WBC 9.7 3.7 - 10.4 04/[address] HEMATOLOGY MCHC 34.2 32.0 - 36.0 04/[address] HEMATOLOGY RDW 14.2 11.5 - 14.[address] [place] [address] HEMATOLOGY MCH 27.0 27.0 - 31.0 04/[address] HEMATOLOGY MPV 8.4 7.4 - 10.[address] [place] [address] HEMATOLOGY Segs-Bands # 5.7 1.5 - 8.[address] [place] [address] HEMATOLOGY Basophils 0.8 0.0 - 1.[address] [place] [address] HEMATOLOGY Eosinophils # 0.3 0.0 - 0.[address] [place] [address] HEMATOLOGY Basophils # 0.1 0.0 - 0.2 04/[address] HEMATOLOGY Eosinophils 3.3 0.0 - 4.[address] [place] [address] HEMATOLOGY Monocytes 13.2 2.0 - 12.[address] [place] [address] HEMATOLOGY Lymphocytes 23.7 20.0 - 40.[address] [place] [address] HEMATOLOGY Segs 59.0 45.0 - 75.[address] [place] [address] HEMATOLOGY Monocytes # 1.3 0.0 - 0.[address] [place] [address] HEMATOLOGY Lymphocytes # 2.3 1.0 - 5.[address] [place] [address] Pathology Reports No Data Provided for This Section Diagnostic Reports Report Value Date Source Facial bones w/wo 03/11/2017 [facility] [place] contrast MRI EXAM: Facial bones w/wo contrast MRI INDICATION: G50.1 Atypical facial pain - G50.1 Atypical facial pain COMPARISON: None. TECHNIQUE: Multiplanar, multisequence magnetic resonance [...] and retrobulbar soft tissues are unremarkable. The Meckel's cave and cavernous sinuses are unremarkable. No rim-enhancing fluid collections are seen. No bone marrow edema is present. Limited views of the brain parenchyma show moderate-severe chronic microvascular ischemic changes. Impression: 1. Diffuse chronic sinus disease, as described above. 2. Scattered polyps in the nasal cavity. SL: [id number] Consultation Notes No Data Provided for This Section Discharge Summaries No Data Provided for This Section History and Physicals No Data Provided for This Section Vital Signs Vital Sign Value Date Comments Source Systolic (mm Hg) 122 04/04/2017 [facility] Diastolic (mm Hg) 75 04/04/2017 [facility] Systolic (mm Hg) 107 04/04/2017 [facility] Diastolic (mm Hg) 59 04/04/2017 [facility] Respitory Rate 29 04/04/2017 [facility] Systolic (mm Hg) 107 04/04/2017 [facility] Diastolic (mm Hg) 59 04/04/2017 [facility] Respitory Rate 29 04/04/2017 [facility] Respitory Rate 25 04/04/2017 [facility] Heart Rate 86 04/04/2017 [facility] Weight 90.909 03/31/2017 [facility] Height 177.8 cm 03/31/2017 [facility] BMI Calculated 28.76 03/31/2017 [facility] Encounters Location Location Encounter Encounter Reason Attending ADM DC Status Source Details Type Number For Provider Date Date Visit [facility] Outpt Diag [id number] [place] 03/11 03/12 [facility] [id number] [place] 04/04 04/05 [facility] Outpt Diag [id number] [place] 09/30 10/01 [facility] Procedure Code Date Perfomer Comments Source Septorhinoplasty [id number] [facility], DIAZ [place] Assessment and Plan No Data Provided for This Section Plan of Care No Data Provided for This Section Social History Social History Date Source Social History TypeResponse 04/04/2017 [place] Smoking Status Former smoker; Exposure to Tobacco Smoke None; Cigarette Smoking Last 365 Days No; Reg Smoking Cessation Counseling No1 entered on: 04/04/17 1quit in 2009 Social History TypeResponse 04/04/2017 [facility] Smoking Status Former smoker; Exposure to Tobacco Smoke None; Cigarette Smoking Last 365 Days No; Reg Smoking Cessation Counseling No1 1quit in 2009 No data available for this 03/12/2017 DIAZ [place] section Family History No Data Provided for This Section Advance Directives No Data Provided for This Section Functional Status No Data Provided for This Section
[2018-12-28] MEDS ORDERED: LIDOCAINE HCL/PF 3.5% OPTH GEL ONE (08:01)
[2018-12-28] MEDS ORDERED: LIDOCAINE 2% MPF 5 ML VIAL ONE (08:01)
[2018-12-28] MEDS ORDERED: BUPIVACAINE 0.25% PF 10 ML VIAL ONE (08:01)
[2018-12-28] MEDS ORDERED: NA CHLORIDE 0.9% 500 ML ONE (08:02)
[2018-12-28] MEDS: CYCLOPENTOLATE 1% OPTH 2 ML ONE ×3 (08:25→08:45)
[2018-12-28] MEDS: PHENYLEPHRINE 10% OPTH 5ML ONE ×3 (08:25→08:45)
[2018-12-28] MEDS ORDERED: FENTANYL CITR 100 MCG/2 ML ONE (09:36)
[2018-12-28] MEDS ORDERED: MIDAZOLAM HCL 2 MG/2 ML INJ ONE (09:36)
[2018-12-28] MEDS ORDERED: TRYPAN BLUE 0.5 ML SYR OPTH ONE (09:50)
[2018-12-28] MEDS: TETRACAINE HCL 0.5% 4ML OPTH ONE ×2 (10:04→10:15)
[2018-12-28] MEDS: LIDOCAINE 1% MPF 2 ML AMPULE ONE ×2 (10:09→10:23)
[2018-12-28] MEDS: MOXIFLOXACIN HCL 10 DROPS/ML **OR USE OPTH ONE ×2 (10:15→10:29)
--- NOTE | 2018-12-28 10:36 | P.BOP ---
Preoperative diagnosis: Combined form of cataract OD Postoperative diagnosis: Same Primary procedure: Phacoemulsification with IOL OD Estimated blood loss: None Anesthesia: Local (Topical with anesthesia for cataract surgery) Complications: None Implants: [id number] +19.0 Transferred to: Other (Day surgery) Condition: Good
--- NOTE | 2018-12-28 22:16 | OP ---
Date of Procedure: 12/28/2018 Surgeon: Lizy Calhoun MD Anesthesiologist: Mary Mir CRNA and Gautam Bowden MD. Preoperative Diagnosis: Combined form of cataract, right eye. Operation Performed: Phacoemulsification with intraocular lens implant, right eye. Anesthesia: Per cataract surgery. Complications: None. Description Of Procedure: In the operating room the patient was prepped and draped in the usual ster ile fashion for ophthalmic surgery. A lid speculum was placed in the right eye. Two paracentesis si gm were made superiorly and inferiorly in the limbal cornea. Viscoat was placed in the anterior roel mber and a crescent blade was used to make a corneal groove and tunnel, and a keratome was used to en ter the anterior chamber. Provisc was placed in the anterior chamber and a 360 degree capsulotomy wa s performed with a cystitome. The lens was hydrodissected with BSS and rotated freely. The lens was removed with a stop and chop technique. 10.47 phaco CDE was used to remove the lens. Residual kvng ex was removed with the irrigation and aspiration. Provisc was placed in the capsular bag. A ZCB00 +19.0 lens was placed in the capsular bag without complications. Irrigation and aspiration was used to remove residual viscoelastic. The paracentesis sites were hydrated with BSS. The wound and parac entesis sites were inspected and found to be watertight. Vigamox 0.07 cc was placed intracamerally a t the end of the procedure. The eye was irrigated with balanced salt solution. The eye was patched with a soft cotton patch and Brink metal shield. The patient was returned to day surgery in good condition. Comments: Akten was placed in the eye in Day surgery and irrigated out of the eye with BSS in the OR . Preservative free 1% lidocaine was placed in the anterior chamber prior to Viscoat. Discharge Instructions: Mr. Sorto is discharged to home in good condition. He is to follow up bernie Calhoun in the morning. ADARSH/MODL Voice ID: [id number] Report ID: [id number]
== END 2018-12-28 11:17 | disposition home or self-care (01) ==
LOC: OR 07:37
PROVIDERS: ATTEND Ophthalmology Retina Specialist
PROC: 08RJ3JZ Replacement of Right Lens with Synthetic Substitute, Percutaneous Approach (ICD-10-PCS; principal; 2018-12-28 09:50)
DX: H25.811 Combined forms of age-related cataract, right eye (principal); I10 Essential (primary) hypertension; M19.90 Unspecified osteoarthritis, unspecified site; Z87.891 Personal history of nicotine dependence; Z83.518 Family history of other specified eye disorder
CPT/HCPCS: 82962; 66984; J0171; J2250; J3010; J2001